=== PATIENT | male | born 1955 | race Caucasian/White ===

== ENCOUNTER 2017-01-26 13:51 | Emergency (ER) | payer OTHER ==
[2017-01-26 14:08] VITALS: TEMP 98.3; BMI 25.8
--- NOTE | 2017-01-26 14:32 | ED PDOC ---
Arrival/HPI - General Chief Complaint: Shortness Of Breath Time Seen by Provider: 01/26/17 14:03 Historian: Thermocouple Tester (#[id number]) - History of Present Illness Narrative History of Present Illness (Text): 01/26/17 14:06 A 61 year old deaf patient presents to the emergency department complaining of dyspnea on exertion for the past 3 weeks. Patient notes earlier today he was in the hospital for his interview for cardiac rehab and when he told the nurse she has been experiencing dyspnea on exertion for 4 weeks they suggest that the patient come down the the emergency department. Patient notes on 12/20/2016 he was experiencing chest tightness so he went to [facility] emergency department for which he was admitted. On 12/22/16 he had a PCI with stents. Patient reports he has not taking any of his medications for the past 2 weeks as he ran out. He denies fever, cough, chest pain, or any other complaints at this time. PMD: Dr. Siegel Weigh Machine Operator: Dr. Villanueva Time/Duration: > week (3 weeks) Symptom Onset: Sudden Symptom Course: Other Quality: Other Activities at Onset: Light Context: Exertion Past Medical History - Provider Review Nursing Documentation Reviewed: Yes - Infectious Disease Hx of Infectious Diseases: None - Cardiac Hx Hypertension: Yes - HEENT Hx Deafness: Yes Other/Comment: MUTE - Endocrine/Metabolic Hx Diabetes Mellitus Type 2: Yes - Gastrointestinal Hx Gastritis: Yes - Psychiatric Hx Substance Use: No Family/Social History - Physician Review Nursing Documentation Reviewed: Yes Family/Social History: Unknown Family HX Smoking Status: Former Smoker Hx Alcohol Use: No Hx Substance Use: No Allergies/Home Meds Allergies/Adverse Reactions: Allergies No Known Allergies Allergy (Verified 01/26/17 14:18) Home Medications: Home Meds Medication Instructions Recorded Confirmed Ramipril [Altace] 1 cap PO DAILY 01/26/17 01/26/17 Review of Systems - Review of Systems Constitutional: absent: Fevers Eyes: absent: Vision Changes ENT: absent: Sinus Congestion Respiratory: absent: Cough, Sputum, Wheezing Cardiovascular: ALFARO. absent: Chest Pain, Palpitations, Edema, Calf Pain, Orthopnea, Syncope Gastrointestinal: absent: Abdominal Pain, Constipation, Diarrhea, Nausea, Vomiting Genitourinary Male: absent: Dysuria Musculoskeletal: absent: Back Pain, Neck Pain Skin: absent: Rash Neurological: absent: Headache, Dizziness, Focal Weakness, Gait Changes, Speech Changes, Facial Droop Endocrine: absent: Polyuria Psychiatric: absent: Depression Physical Exam Vital Signs Reviewed: Yes Vital Signs Temp Pulse Resp BP Pulse Ox 01/26/17 14:04 98.3 F 73 18 140/91 H 99 Temperature: Afebrile Blood Pressure: Hypertensive Pulse: Regular Respiratory Rate: Normal Appearance: Positive for: Well-Appearing, Non-Toxic, Comfortable Pain Distress: None Mental Status: Positive for: Alert and Oriented X 3 - Systems Exam Head: Present: Atraumatic, Normocephalic Pupils: Present: PERRL Extroacular Muscles: Present: EOMI Conjunctiva: Present: Normal Mouth: Present: Moist Mucous Membranes Neck: Present: Normal Range of Motion Respiratory/Chest: Present: Clear to Auscultation, Good Air Exchange. No: Respiratory Distress, Accessory Muscle Use Cardiovascular: Present: Regular Rate and Rhythm, Normal S1, S2. No: Murmurs Abdomen: Present: Normal Bowel Sounds. No: Tenderness, Distention, Peritoneal Signs Back: Present: Normal Inspection Upper Extremity: Present: Normal Inspection. No: Cyanosis, Edema Lower Extremity: Present: Normal Inspection. No: Edema Neurological: Present: GCS=15, CN II-XII Intact, Speech Normal Skin: Present: Warm, Dry, Normal Color. No: Rashes Psychiatric: Present: Alert, Oriented x 3, Normal Insight, Normal Concentration Medical Decision Making ED Course and Treatment: 01/26/17 14:06 Impression: A 61 year old male with dyspnea on exertion x 3 weeks. Physical examination reveals no acute findings. Differential Diagnosis include but are not limited to: ACS vs PE vs deconditioning Plan: -- EKG -- Chest X-ray -- Labs -- Aspirin -- Reassess and disposition Progress Notes: 01/26/17 15:56 EKG shows NSR at 67bpm with LVH, grossly unchanged from EKG on 11/30/13 01/26/17 17:06 Cxray negative. Trop negative. BNP WNL. D-dimer elevated and therefore will get CTA to eval for PE Report Date : 01/26/2017 17:14:35 PROCEDURE: Angio Chest CT Dictator : Joana Lopez MD IMPRESSION: Cardiomegaly. Dense coronary artery calcifications. No large central or segmental pulmonary embolus identified. There is decreased mineralization of the bones, most likely representing osteoporosis. Rarely, underlying metabolic bone disease or infiltrative lesions can also have this appearance. 01/26/17 17:40 Spoke to patient at length with educational interpreter. Patient will follow-up with PMD tomorrow. Will call fruit or nut picker to follow-up and will follow-up with cardiac rehab. Patient requesting medication refills. Told to hold metformin for 48 hours due to CTA. - Lab Interpretations Lab Results: 01/26/17 14:00 01/26/17 14:00 Lab Results 01/26/17 14:00: D-Dimer, Quantitative 0.55 H 01/26/17 14:00: Sodium 136, Potassium 4.2, Chloride 96 L, Carbon Dioxide 30, Anion Gap 14, BUN 12, Creatinine 0.9, Est GFR ( Amer) > 60, Est GFR (Non- Af Amer) > 60, Random Glucose 182 H, Calcium 9.4, Total Bilirubin 0.8, AST 29, ALT 33, Alkaline Phosphatase 75, Lactate Dehydrogenase 390, Total Creatine Kinase 107, Troponin I < 0.01, NT-Pro-B Natriuret Pep 157, Total Protein 7.7, Albumin 4.5, Globulin 3.3, Albumin/Globulin Ratio 1.4 01/26/17 14:00: WBC 4.7, RBC 4.28, Hgb 12.6 L, Hct 36.3 L, MCV 84.8, MCH 29.4, MCHC 34.7, RDW 12.4, Plt Count 244, MPV 9.9, Gran % 70.1 H, Lymph % (Auto) 22.6 , Haralson % (Auto) 6.3 H, Eos % (Auto) 0.8 L, Baso % (Auto) 0.2, Gran # 3.32, Lymph # 1.1 L, Haralson # 0.3, Eos # 0.0, Baso # 0.01 I have reviewed the lab results: Yes - RAD Interpretation Radiology Orders: 01/26/17 14:19 CHEST PORTABLE [RAD] Stat 01/26/17 15:36 ANGIO CHEST PE PROTOCOL [CT] Stat - Medication Orders Current Medication Orders: Discontinued Medications Aspirin (Aspirin Chewable) 324 mg PO STAT STA Stop: 01/26/17 14:21 Last Admin: 01/26/17 15:00 Dose: 324 mg Iohexol (Omnipaque 350 100 Ml) Confirm Administered Dose 350 mg .ROUTE .STK-MED ONE Stop: 01/26/17 16:19 Ondansetron HCl (Zofran Inj) 4 mg IVP STAT STA Stop: 01/26/17 17:52 - Scribe Statement The provider has reviewed the documentation as recorded by the Liviaibneil Luna Provider Scribe Attestation: All medical record entries made by the Scribe were at my direction and personally dictated by me. I have reviewed the chart and agree that the record accurately reflects my personal performance of the history, physical exam, medical decision making, and the department course for this patient. I have also personally directed, reviewed, and agree with the discharge instructions and disposition. Disposition/Present on Arrival - Present on Arrival Any Indicators Present on Arrival: No History of DVT/PE: No History of Uncontrolled Diabetes: No Urinary Catheter: No History of Decub. Ulcer: No History Surgical Site Infection Following: None - Disposition Have Diagnosis and Disposition been Completed?: Yes Diagnosis: Dyspnea on exertion Disposition: HOME/ ROUTINE Disposition Time: 17:42 Patient Plan: Discharge Patient Problems: Current Active Problems Problem Status Onset Dyspnea on exertion Acute Condition: GOOD Discharge Instructions (ExitCare): Dyspnea (ED) Additional Instructions: Follow up with PMD within 2 days. Follow-up with fruit or nut picker. Follow-up with cardiac rehab. Return to emergency department if condition worsens. Take medication as prescribed. Prescriptions: Aspirin [Aspirin Chewable] 1 tab PO DAILY #30 Atorvastatin [Lipitor] 1 tab PO DAILY #30 Blood Sugar Diagnostic [Test Strips] 1 each MC DAILY #30 strip Clopidogrel [Plavix] 75 mg PO DAILY #30 Insulin Glargine,Hum.rec.anlog [Lantus Solostar] 50 unit SQ HS #30 insuln.pen MetFORMIN [glucoPHAGE] 1 tab PO BID #60 Metoprolol Tartrate 25 mg PO BID #60 tablet Pen Needle, Diabetic [Unifine Pentips] 1 each MC TID #100 dis.needle Ramipril [Altace] 5 mg PO DAILY #30
[2017-01-26 15:03] LABS: BASO # 0.01 K/mm3 (0.0-2.0); BASO % 0.2 % (0.0-3.0); EOS % 0.8 % (1.5-5.0); GRAN # 3.32 (1.4-6.5); GRAN % 70.1 % (50.0-68.0); HEMOGLOBIN 12.6 gm/dL (14.0-18.0); LYMPH # 1.1 (1.2-3.4); LYMPH % 22.6 % (22.0-35.0); MEAN CELL VOLUME 84.8 fL (80.0-105.0); MEAN CORPUSCULAR HEMOGLOBIN 29.4 pg (25.0-35.0); MEAN CORPUSCULAR HGB CONC 34.7 g/dl (31.0-37.0); MEAN PLATELET VOLUME 9.9 fl (7.0-11.0); MONO # 0.3 (0.1-0.6); MONO % 6.3 % (1.0-6.0); PLATELET COUNT 244 10^3/uL (120.0-450.0); RBC 4.28 10^6/uL (3.5-6.1); RED CELL DISTRIBUTION WIDTH 12.4 % (11.5-14.5); WHITE BLOOD COUNT 4.7 10^3/ul (4.5-11.0)
--- NOTE | 2017-01-26 15:10 | RAD ---
HISTORY: shortness of breath COMPARISON: No prior. FINDINGS: LUNGS: No active pulmonary disease. PLEURA: No significant pleural effusion identified, no pneumothorax apparent. CARDIOVASCULAR: Normal. OSSEOUS STRUCTURES: No significant abnormalities. VISUALIZED UPPER ABDOMEN: Normal. OTHER FINDINGS: None. IMPRESSION: No active disease.
[2017-01-26 15:13] LABS: ALB/GLOB RATIO 1.4 (1.1-1.8); ALBUMIN 4.5 g/dL (3.0-4.8); ALT/SGPT 33 U/L (7-56); AST/SGOT 29 U/L (15-59); BLOOD UREA NITROGEN 12 mg/dL (7-21); CALCIUM 9.4 mg/dL (8.4-10.5); GFR AFRICAN-AMERICAN > 60; GFR NON-AFRICAN AMERICAN > 60
[2017-01-26 15:25] LABS: B-TYPE NATRIURETIC PEPTIDE 157 pg/mL (0-450)
[2017-01-26 15:28] LABS: TROPONIN I < 0.01 ng/mL
[2017-01-26] MEDS ORDERED: Iohexol 350 MG/100 ML VIAL ONE (16:18)
--- NOTE | 2017-01-26 17:16 | CT ---
CTA chest PE protocol Indication: elevated d-dimer, SOB Technique: Contiguous axial images were obtained through the chest with intravenous contrast enhancement. Sagittal and coronal reconstructions were generated and reviewed. This CT exam was performed using 1 or more of the falling dose reduction techniques: Automated exposure control, adjustment of the MAA and/or kV according to patient size, and/or use of iterative reconstruction technique. IV Contrast: 96 mL Omnipaque 350 Radiation dose (DLP): 525.66 MGy-cm. Comparison: Chest x-ray performed 01/26/17 Findings: Visualized portions of the inferior thyroid gland appear unremarkable. The mediastinal and hilar vascular structures appear within normal limits. Cardiomegaly. Dense coronary artery calcifications. Sub cm prevascular/mediastinal lymph nodes, and axillary lymph nodes, nonspecific. No large central or segmental pulmonary embolus identified. No focal consolidation. No pleural effusion. No pneumothorax. No suspicious pulmonary nodules measuring greater than 5 mm. Limited visualized portions of the upper abdomen appear grossly unremarkable. 10 mm probable splenule. There is decreased mineralization of the bones, most likely representing osteoporosis. Rarely, underlying metabolic bone disease or infiltrative lesions can also have this appearance. Impression: Cardiomegaly. Dense coronary artery calcifications. No large central or segmental pulmonary embolus identified. There is decreased mineralization of the bones, most likely representing osteoporosis. Rarely, underlying metabolic bone disease or infiltrative lesions can also have this appearance.
[2017-01-26 18:52] VITALS: BP 145/82; PULSE 75; RESP 17; O2SAT 100
--- NOTE | 2017-01-27 10:16 | CARD ---
APPROVED REPORT EKG Measurement Heart [id number] <Conclusion> Normal sinus rhythm Voltage criteria for left ventricular hypertrophy ST elevation, consider early repolarization, pericarditis, or injury
== END 2017-01-26 18:45 | disposition home or self-care (01) ==
LOC: ED 13:51
DX: R06.00 Dyspnea, unspecified (principal); I10 Essential (primary) hypertension; Z95.5 Presence of coronary angioplasty implant and graft; Z87.891 Personal history of nicotine dependence
CPT/HCPCS: 71010; 71275; 80053; 82550; 83615; 83880; 84484; 85025; 85378; 93005; 96374; 99284; Q9967